=== PATIENT | female | born 1930 | race Caucasian/White ===

== ENCOUNTER → 2017-02-16 | Outpatient (REF) | payer MEDICARE ==
[~2017-02-16] MED LIST: ASPI-860 PO; ATOR40TA2 PO; CEPH-331 PO; FAMO20TA13; FESO4TAB2 PO; FURO-124 PO; FURO40TA4; LEVO75TA PO; MAGN250T35 PO; MAGN500T PO; MTP25TSR PO; OMEP20CA6 PO; OMG1KC PO; PIOG15TA3 PO; [UNRECOGNIZED DRUG - CODE] PO; [UNRECOGNIZED DRUG - CODE] PO
== END ==
LOC: LAB 11:20
PROVIDERS: ATTEND Nurse Practitioner Family
DX: I50.9 Heart failure, unspecified (principal); R60.9 Edema, unspecified
CPT/HCPCS: 80048